=== PATIENT | female | born 1990 | race Two or more races ===

== ENCOUNTER 2017-12-04 06:45 | Day surgery (SDC) | payer OTHER ==
[~2017-12-04 06:45] MED LIST: Buffered Lidocaine 0.9% SYRIN* 5 ML/SYR SYRINGE INTRADERM ONE; Lidocaine 2% PF * 5 ML VIAL ONE; Propofol* 10 MG/ML 20 ML BTL IV PUSH ONE
[2017-12-04] MEDS ORDERED: Rocuronium* 10 MG/ML VIAL ONE (06:46)
[2017-12-04] MEDS ORDERED: Midazolam* 1 MG/ML 2 ML VIAL (2 MG) ONE (06:47)
[2017-12-04] MEDS ORDERED: fentaNYL* 50 MCG/ML 2 ML VIAL (100 MCG VIAL) ONE ×2 (06:47→08:55)
[2017-12-04] MEDS ORDERED: Lidocain 1% EPI 1:100,000 * 30 ML MDV ONE (08:34)
[2017-12-04] MEDS ORDERED: EPHEDrine (Pressors)* 50 MG/ML VIAL ONE (09:10)
[2017-12-04] MEDS ORDERED: Dexamethasone IV* 4 MG/ML 1 ML (4 MG) ONE (09:25)
[2017-12-04] MEDS ORDERED: Ondansetron INJ* 2 MG/ML VIAL ONE (09:25)
[2017-12-04] MEDS ORDERED: HYDROmorphone INJ* 0.5 MG/0.5 ML SYRINGE IV PRN (09:45)
[2017-12-04] MEDS ORDERED: Naloxone* 0.4 MG/ML 1 ML VIAL IV PRN (09:45)
[2017-12-04] MEDS ORDERED: DiMENhydriNATE IV* 50 MG/ML VIAL IV PUSH PRN (09:45)
[2017-12-04] MEDS ORDERED: Acetaminophen IV 1GM/100ML * 1,000 MG/100 ML VIAL IVPB ONE (09:45)
[2017-12-04] MEDS ORDERED: Ketorolac INJ* 30 MG/ML 1 ML VIAL ONE (10:20)
[2017-12-04 11:01] VITALS: BP 145/96
--- NOTE | 2017-12-04 20:37 | OP ---
DATE OF OPERATION: 12/04/17 [facility] DATE OF : [birth year] SURGEON: Aj Roche MD CONVERTING OPERATOR: Dr. Valente Rogel. ANESTHESIA: General. PRE-OP DIAGNOSIS: Left branchial cleft cyst. POST-OP DIAGNOSIS: Left branchial cleft cyst. OPERATIVE PROCEDURE: Excision of branchial cleft cyst from the left neck. INDICATIONS: This is a 27-year-old woman who noted a relatively abrupt onset swelling in the left upper neck few months ago. Imaging was consistent with a fluid-filled cyst, likely a second branchial cleft cyst, and fine needle aspiration was consistent with benign process. The decision was made to proceed with elective excision. ESTIMATED BLOOD LOSS: Less than 5 cc. SPECIMEN: Branchial cleft cyst submitted intact to Pathology for review. COMPLICATIONS: None. DESCRIPTION OF PROCEDURE: On 12/04/17, the patient was brought to the operating room. General anesthesia was induced and an oral endotracheal tube was placed. The patient was positioned. Preop verification was performed. The intended incision was marked and approximately 3 cc of 1% lidocaine with 1:100, 000 epinephrine was infiltrated into the subcutaneous layer. The neck was then prepped with Betadine and the patient was draped sterilely and time-out was performed. A 15-blade was used to incise skin. Deeper dissection was undertaken carefully using a dissector and Bovie cautery. Once dissection was carried through the platysma layer and the cyst was encountered and subplatysmal flaps were raised superiorly and inferiorly, the anterior border of the sternocleidomastoid muscle was identified. The cyst was then very carefully dissected from its fibrous attachments to surrounding structures. Tight capsular dissection was undertaken. The jugular vein and carotid artery were identified during the course of the dissection as was the XI cranial nerve. All of these structures were protected without injury. Small vessels were controlled with either bipolar cautery or 4-0 silk ties. Ultimately, the cyst was able to be completely freed and delivered through the incision. It was intact without any breech in the capsule. It was placed in formalin. The wound was then irrigated and inspected. There was no evidence of active bleeding. A Valsalva was performed again with no active bleeding. The wound was closed in layers. Platysma and subcutaneous fat were closed with 4-0 Vicryl. Skin was then closed with 5-0 nylon. Steri-Strips were applied. The patient was then returned to the care of the anesthesiologist, extubated and delivered to the PACU in stable condition. [id number]/[facility] #: [id number] ISIDRO
== END 2017-12-04 11:26 | disposition home or self-care (01) ==
LOC: OR 06:45
PROVIDERS: ATTEND Otolaryngology
DX: Q18.0 Sinus, fistula and cyst of branchial cleft (principal)
CPT/HCPCS: 81025; 88304; J1100; J1885; J2250; J2405; J2704; J3010

== ENCOUNTER 2018-02-16 17:40 | Emergency (ER) | payer OTHER ==
--- OUTSIDE RECORDS SUMMARY | 2018-02-16 17:44 | XMS REPORT | Continuity of Care Document ---
:1990 External Reference #:[id number] Author Name Leonardo Maddox MD Address [address] [place] [address] Care Team Providers Name Role Phone Kellen Chacon DO Care Team Information Information Clerk Unavailable Kellen Chacon DO Primary Care Physician Unavailable Payers Type Date Identification Numbers Payment Provider Subscriber Policy Number: [id number] Aetann Dominguez PayID: [id number] [address] [address] [place] [address] Advance Directives Description No Information Available Problems Date Description Provider Status Onset: 12/25/2017 Allergy to other foods Leonardo Maddox MD Active Onset: 12/25/2017 Allergic urticaria Leonardo Maddox MD Active Family History Description No Information Available Social History Type Date Description Comments Sex Unknown Smoke-Free Home is smoke-free Pets None Tobacco Use Start: Unknown Patient has never smoked Smoking Status Reviewed: 01/13/18 Patient has never smoked Allergies, Adverse Reactions, Alerts Description No Known Drug Allergies Medications Medication Date Status Form Strength Qnty SIG Indications Ordering Provider Desloratadine 12/25/ Active Tablets 5mg 30tab take one L50.0 Christopher 2018 s tablet po Melinda Maddox MD every am Xyzal Allergy 12/25/ Active Tablets 5mg 30tab take 1 L50.0 Christopher 24HR 2018 s tablet (5 Melinda Maddox MD mg) po qhs Epipen 2-Diaz 12/25/ Active Solution 0.3mg/0.3 4unit as L50.0 opher 2018 Auto-Injec ML s directed Melinda Maddox MD t Vienva / Active Tablets 0.1-20mg- Unknown 0000 mcg Claritin 00/00/ Active Tablets 10mg one Unknown 0000 tablet by mouth every morning Immunizations Description No Information Available Vital Signs Date Vital Result Comment 01/13/2018 8:35am BP Systolic 129 mmHg BP Diastolic 90 mmHg Height 64 inches 5'4" Weight 133.00 lb BMI (Body Mass Index) 22.8 kg/m2 Heart Rate 71 /min Respiratory Rate 18 /min Body Temperature 97.0 F O2 % BldC Oximetry 99 % 12/25/2017 3:11pm BP Systolic 142 mmHg BP Diastolic 96 mmHg Height 64 inches 5'4" Weight 132.00 lb BMI (Body Mass Index) 22.7 kg/m2 Heart Rate 65 /min Respiratory Rate 18 /min Body Temperature 98.3 F O2 % BldC Oximetry 99 % Results Test Date Facility Test Result H/L Range Note Order 12/25/2017 [facility] Epinephrine Injector < pending> Training Order 12/25/2017 [facility] Skin Test Food <pending > Procedures Date Code Description Status 12/25/2017 75489 Education/Training PT Self-Management Each 30Minutes Indiv Completed PT 12/25/2017 69067 Allergy Tests Percutaneous W/ Allergenic Extracts Completed Encounters Type Date Location Provider Dx Diagnosis Office Visit 01/13/2018 8:30a TAVIA Vickers L50.0 Allergic urticaria Z91.018 Allergy to other foods Office Visit 12/25/2017 3:00p Jason Maddox L50.0 Allergic urticaria Z91.018 Allergy to other foods Plan of Treatment 01/13/2018 - DELMA Brambila50.0 Allergic urticariaComments:Patient's skin test showed 3+ reaction to rye and beef. Patient's CBC and liver function and thyroid were all within normal range. Patient's LUIS slightly elevated at 1.2 U. Patient will eliminate rye and beef from her diet for 2 weeks. Patient will then reintroduce these foods one at a time back into her diet and observe for any allergic reaction for the next week. If patient shows no allergic reaction such as outbreak of hives, and patient can safely consume these foods in moderation. Patientwill continue Clarinex and Xyzal as suppressive antihistamine therapy.Greater than 50% of the 25-minute visit was spent in discussion of the testing results and treatment options.Follow up:one yearZ91.018 Allergy to other foods
[2018-02-16 18:07] VITALS: BP 158/97
--- NOTE | 2018-02-16 18:49 | UC ---
Throat Pain/Nasal Chong HPI - HPI Summary HPI Summary: C/O sore throat x 1 week with fatigue. White spots in the throat. No congestion / cough or headache - History of Current Complaint Chief Complaint: UCGeneralIllness Stated Complaint: SORE THROAT Time Seen by Provider: 02/16/18 18:25 Hx Obtained From: Patient Hx Last Menstrual Period: [id number] ?: No Onset/Duration: Sudden Onset, Lasting Weeks - 1, Still Present Severity: Moderate Pain Intensity: 4 Cough: None Associated Signs & Symptoms: Positive: Negative - Allergies/Home Medications Allergies/Adverse Reactions: Allergies Allergy/AdvReac Type Severity Reaction Status Date / Time No Known Allergies Allergy Verified 02/16/18 18:08 Home Medications: Home Medications LevoCETirizine TAB (NF) [Xyzal TAB (NF)] 5 mg PO DAILY 02/16/18 [History Confirmed 02/16/18] PMH/Surg Hx/FS Hx/Imm Hx Previously Healthy: Yes - Surgical History Surgical History: Yes Surgery Procedure, Year, and Place: Ear cyst removed right ear 1999-. [place] teeth extraction 2013. Removal of benign growth in neck 2017 - Family History Known Family History: Positive: Diabetes - Social History Occupation: Student Lives: Dormitory/Roommates Alcohol Use: Weekly Substance Use Type: None Smoking Status (MU): Never Smoked Tobacco Review of Systems Constitutional: Fatigue ENT: Sore Throat Is Patient Immunocompromised?: No All Other Systems Reviewed And Are Negative: Yes Physical Exam Triage Information Reviewed: Yes Appearance: Well-Appearing, No Pain Distress, Well-Nourished Vital Signs: Initial Vital Signs Temp 99.1 F 02/16/18 18:02 Pulse 70 02/16/18 18:02 Resp 16 02/16/18 18:02 BP 158/97 02/16/18 18:02 Pulse Ox 100 02/16/18 18:02 Vital Signs Reviewed: Yes Eyes: Positive: Conjunctiva Clear ENT: Positive: Pharyngeal erythema, TMs normal, Tonsillar exudate - with lymphoid hyperplasia Neck exam: Normal Respiratory Exam: Normal Cardiovascular Exam: Normal Musculoskeletal Exam: Normal Neurological Exam: Normal Psychological Exam: Normal Skin Exam: Normal Throat Pain/Nasal Course/Dx - Differential Dx/Diagnosis Differential Diagnosis/HQI/PQRI: Otitis Media, Pharyngitis, Sinusitis, Tonsillitis Provider Diagnoses: Acute viral pharyngitis Discharge - Sign-Out/Discharge Documenting (check all that apply): Patient Departure All imaging exams completed and their final reports reviewed: No Studies - Discharge Plan Condition: Stable Disposition: HOME Patient Education Materials: Pharyngitis (ED) Referrals: [facility] - Carl REMY [Primary Care Provider] - - Billing Disposition and Condition Condition: STABLE Disposition: Home
== END 2018-02-16 19:00 | disposition home or self-care (01) ==
LOC: UCEAST 17:40
DX: J02.8 Acute pharyngitis due to other specified organisms (principal)
CPT/HCPCS: 87651; 99211; G0463